=== PATIENT | male | born 1950 | race Caucasian/White ===

== ENCOUNTER 2016-08-16 08:21 | Day surgery (SDC) | payer MEDICARE, OTHER ==
[~2016-08-16 08:21] MED LIST: Lactated Ringers 1,000 ML IV SCH; Midazolam 1 MG/ML 2 ML SDV ONE; Propofol 200 MG/20 ML SDV ONE; fentaNYL 100 MCG/2 ML SDV ONE
[2016-08-16] MEDS ORDERED: Lidocaine 2% 5 ML SDV ONE (08:53)
[2016-08-16] MEDS ORDERED: Propofol 200 MG/20 ML SDV ONE (08:54)
--- NOTE | 2016-08-16 08:55 | PCM.PREANE ---
Preanesthetic Assessment - Anesthesia/Transfusion/Family Hx Anesthesia History: Prior Anesthesia Without Reaction Family History of Anesthesia Reaction: No Transfusion History: No Prior Transfusion(s) - Review of Systems General: No Symptoms Pulmonary: No Symptoms Cardiovascular: No Symptoms Gastrointestinal: No symptoms Neurological: No Symptoms Other: Reports: None - Physical Assessment NPO Status Date: 08/15/16 Height: 1.75 m Weight: 99.79 kg ASA Class: 2 Mental Status: Alert & Oriented x3 Airway Class: Mallampati = 2 Dentition: Reports: Normal Dentition ROM/Head Extension: Full Lungs: Clear to auscultation, Normal respiratory effort Cardiovascular: Regular Rate, Regular Rhythm - Allergies Allergies/Adverse Reactions: Allergies Allergy/AdvReac Type Severity Reaction Status Date / Time No Known Allergies Allergy Verified 08/11/16 14:21 - Anesthesia Plan Pre-Op Medication Ordered: None - Acknowledgements Anesthesia Type Planned: MAC Pt an Appropriate Candidate for the Planned Anesthesia: Yes Alternatives and Risks of Anesthesia Discussed w Pt/Guardian: Yes Pt/Guardian Understands and Agrees with Anesthesia Plan: Yes Additional Comments: PMH: HTN, PreAnesthesia Questionnaire Cardiovascular History: Reports: Hypertension Respiratory History: Reports: Other (See Below) Other Respiratory History: "possible sleep apnea" not diagnosed but states is going to be "check out" Gastrointestinal History: Reports: GERD Genitourinary History: Reports: Other (See Below) Other Genitourinary History: elevated PSA, has appointment with Dr. Perry on 08/15/16 Musculoskeletal History: Reports: Arthritis Endocrine/Metabolic History: Reports: Obesity/BMI 30+ Oncologic (Cancer) History: Reports: Basal Cell Carcinoma Other Oncologic History: basal cell cancer removed from back Dermatologic History: Reports: Other (See Below) Other Dermatologic History: hx cyst removed from back - Past Surgical History Head Surgeries/Procedures: Reports: None - SUBSTANCE USE Smoking Status *Q: Never Smoker Recreational Drug Use History: No - HOME MEDS Home Medications: Home Meds Flaxseed Oil 1 tab PO DAILY 08/11/16 [History] Gluc 2KCl/Chondr/Neal Hy/Hy Ac [Glucosamine & Chondroitin Cap] 1 tab PO DAILY [History] Hydrochlorothiazide 1 tab PO DAILY 08/11/16 [History] Valsartan 2 tab PO DAILY 08/11/16 [History] - CURRENT (IN HOUSE) MEDS Current Meds: Current Medications Lactated Ringer's (Ringers, Lactated) 1,000 mls @ 125 mls/hr IV ASDIRECTED SARTHAK Last Admin: 08/16/16 08:40 Dose: 125 mls/hr Discontinued Medications Fentanyl (Sublimaze) Confirm Administered Dose 100 mcg .ROUTE .STK-MED ONE Stop: 08/16/16 07:51 Midazolam HCl (Versed 1 Mg/Ml) Confirm Administered Dose 2 mg .ROUTE .STK-MED ONE Stop: 08/16/16 07:51 Propofol (Diprivan 20 Ml) Confirm Administered Dose 200 mg .ROUTE .STK-MED ONE Stop: 08/16/16 07:51
--- NOTE | 2016-08-16 09:36 | PCM.OPNOTE ---
- General Post-Op/Procedure Note Date of Surgery/Procedure: 08/16/16 Operative Procedure(s): colonoscopy Findings: see dict [id number] Pre Op Diagnosis: change in bowel habits Post-Op Diagnosis: Same Anesthesia Technique: Moderate sedation Primary Surgeon: Edvin Story Complications: None Condition: Good
--- NOTE | 2016-08-16 09:57 | PCM.POSTAN ---
POST ANESTHESIA ASSESSMENT - MENTAL STATUS Mental Status: alert, oriented - RESPIRATORY Respiratory Status: respiratory rate WNL, airway patent, O2 saturation stable - CARDIOVASCULAR CV Status: pulse rate WNL, blood pressure stable - GASTROINTESTINAL GI Status: no symptoms - PAIN Pain Score: 0 Free Text/Narrative:: 0 - POST OP HYDRATION Hydration Status: adequate & stable
--- NOTE | 2016-08-16 09:57 | PCM48HPAN ---
Post Anesthesia Note - EVALUATION WITHIN 48HRS OF ANESTHETIC Vital Signs in Normal Range: Yes Patient Participated in Evaluation: Yes Respiratory Function Stable: Yes Airway Patent: Yes Cardiovascular Function Stable: Yes Hydration Status Stable: Yes Pain Control Satisfactory: Yes Nausea and Vomiting Control Satisfactory: Yes Mental Status Recovered: Yes
[2016-08-16 10:43] VITALS: BP 105/66
--- NOTE | 2016-08-16 11:52 | OR ---
SURGEON: Edvin Story MD DATE OF PROCEDURE: 08/16/2016 PREOPERATIVE DIAGNOSES: Surveillance colonoscopy and change in bowel habit. POSTOPERATIVE DIAGNOSIS: Hemorrhoids. PROCEDURES PERFORMED: Colonoscopy. FINDINGS: 1. The patient is easily sedated with MANAGER TRAFFIC and Diprivan. The patient is soundly snoring. 2. Bowel prep is average with moderate amount of liquid stool. No semi-formed stool. 3. Colon is rather straight forward. Cecum indicated by the ileocecal fold, one-to-one indentation, appendix orifice. Light emittance is not observed. Mucosa examined upon scope pulling out with intermittent irrigation. The patient does not have polyp, diverticulosis, mass, inflammation, stricture, ulceration, bleeding, and AV malformation, and the patient does not have external hemorrhoid. The patient has mild internal hemorrhoid. The patient would benefit from repeat colonoscopy 10 years from today or if clinically indicated otherwise. DESCRIPTION OF PROCEDURE: The patient was taken to the endoscopy room. A time out was called, patient identified, and procedure identified. Diprivan was then administrated. Patient went from awake to sleep, hearing doctor talking or door closing is normal. Perineum inspection and digital examination were then performed. A well- lubricated colonoscope was gently inserted through the rectum, advanced past the rectosigmoid junction, the descending colon, splenic flexure, transverse colon, hepatic flexure, ascending colon, arrived to the cecum. Cecum was identified as dictated in the finding. Then the scope was carefully withdrawn while attention was paid to the mucosal surface for any abnormality. Air will be sucked out during the scope withdrawal. At the rectum, retroflexed to examine any rectal diseases, fistula or hemorrhoids. The patient tolerated procedure well. There were no intraoperative complications, and Dr. Story was present throughout the whole procedure. SPIKE / ADRIANA /[id number]
== END 2016-08-16 10:30 | disposition home or self-care (01) ==
LOC: MW.SDS 08:21
PROVIDERS: ATTEND Surgery
DX: R19.4 Change in bowel habit (principal); I10 Essential (primary) hypertension; K21.9 Gastro-esophageal reflux disease without esophagitis; E66.9 Obesity, unspecified; Z98.890 Other specified postprocedural states; Z79.899 Other long term (current) drug therapy
CPT/HCPCS: 45378; J2250; J3010; J7120; J2704